=== PATIENT | female | born 1975 | race African-American/Black ===

== ENCOUNTER 2016-10-08 21:31 | Emergency (ER) | payer MEDICAID ==
[~2016-10-08] VITALS: Ht 180.3 cm; Wt 77.3 kg
[~2016-10-08 21:31] MED LIST: ELA10 PO; ESK300 PO; OLAN2.5T1 PO
[2016-10-08 21:52] VITALS: BP 120/85
--- NOTE | 2016-10-09 01:05 | NUR ---
TO ER BED 8
[2016-10-09] MEDS ORDERED: HYDROcodone/APAP 5/325 MG 1 TAB TAB PO ONE (01:10)
[2016-10-09] MEDS ORDERED: LIDOCAINE/EPI 1% 1:100000 20 ML VIAL INJ ONE (01:10)
--- NOTE | 2016-10-09 01:27 | NUR ---
PATIENT PRESENTS TO ED WITH C/O ABCESS ON TOP OF HEAD X 2 WEEKS NOW DRAINING . PT DENIES N/V/D; SKIN IS PINK/WARM/DRY; AAOX4 WITH EVEN AND STEADY GAIT; LUNGS CLEAR BL; HR EVEN AND REGULAR; PT DENIES ANY FEVER, CP, SOB, OR COUGH AT THIS TIME; PATIENT STATES PAIN OF 10/10 AT THIS TIME; VSS; PATIENT POSITIONED FOR COMFORT; HOB ELEVATED; BEDRAILS UP X2; BED DOWN. ER MD MADE AWARE OF PT STATUS.
--- NOTE | 2016-10-09 01:29 | NUR ---
DR SHARMA AT BEDSIDE DOING PROCEDURE. PT TOLERATING WELL.
[2016-10-09 02:06] VITALS: BP 120/81
--- NOTE | 2016-10-09 02:06 | NUR ---
Patient discharged with v/s stable. Written and verbal after care instructions given and explained. Patient alert, oriented and verbalized understanding of instructions. Ambulatory with steady gait. All questions addressed prior to discharge. ID band removed. Patient advised to follow up with PMD. Rx of KEFLEX, BACTRIM, NAPROSYN AND NORCO given. Patient educated on indication of medication including possible reaction and side effects. Opportunity to ask questions provided and answered.
== END 2016-10-09 02:06 | disposition home or self-care (01) ==
LOC: MED 21:31
DX: L02.811 Cutaneous abscess of head [any part, except face] (principal); J45.909 Unspecified asthma, uncomplicated
CPT/HCPCS: 10060; 99283; J2001

== ENCOUNTER 2020-12-24 14:47 | Emergency (ER) | payer MEDICAID ==
[~2020-12-24] VITALS: Ht 180.3 cm; Wt 70.3 kg
[~2020-12-24 14:47] MED LIST changes: -ELA10 PO; -ESK300 PO; -OLAN2.5T1 PO; +QUET300T1 PO
[2020-12-24 15:06] VITALS: BP 154/93
--- NOTE | 2020-12-24 15:12 | NUR ---
TENT 2
--- NOTE | 2020-12-24 16:47 | NUR ---
VIOLA SWAB DONE. HANDED TO LAB.
[2020-12-24] MEDS ORDERED: cefTRIAXone 500 MG in LIDOCAINE MPF 1% 1 ML IM ONE (16:50)
[2020-12-24] MEDS ORDERED: PHEN177S23 PO (16:52)
[2020-12-24] MEDS ORDERED: DOXY100C9 PO (16:52)
[2020-12-24] MEDS ORDERED: cefTRIAXone 500 MG VIAL ONE ×2 (16:53→16:55)
[2020-12-24] MEDS ORDERED: LIDOCAINE MPF 1% 5 ML ONE (16:55)
--- NOTE | 2020-12-24 17:04 | NUR ---
Patient discharged with v/s stable. Written and verbal after care instructions given and explained. Patient alert, oriented and verbalized understanding of instructions. Ambulatory with steady gait. All questions addressed prior to discharge. ID band removed. Patient advised to follow up with PMD. Rx of DOXYCYCLINE, PHENOL given. Patient educated on indication of medication including possible reaction and side effects. Opportunity to ask questions provided and answered.
[2020-12-24 17:05] VITALS: BP 154/93
== END 2020-12-24 17:04 | disposition home or self-care (01) ==
LOC: MED 14:47
DX: J02.9 Acute pharyngitis, unspecified (principal); Z20.822 Contact with and (suspected) exposure to COVID-19; Z20.2 Contact with and (suspected) exposure to infections with a predominantly sexual mode of transmission; Z88.8 Allergy status to other drugs, medicaments and biological substances; Z79.899 Other long term (current) drug therapy
CPT/HCPCS: 87426; 96372; 99283; J0696; J2001

== ENCOUNTER 2021-06-02 23:56 | Emergency (ER) | payer MEDICAID ==
[~2021-06-02] VITALS: Ht 180.3 cm; Wt 69.9 kg
[~2021-06-02 23:56] MED LIST changes: +DOXY-690 PO; +PHEN177S23 PO
[2021-06-03 00:29] VITALS: BP 166/103
--- NOTE | 2021-06-03 00:37 | NUR ---
PATIENT TO LOBBY
--- NOTE | 2021-06-03 01:00 | NUR ---
SEEN BY GISELA NO NURSING INTERVENTIONS NEEDED TO BE DONE FOR PATIENT
[2021-06-03] MEDS ORDERED: NAPR-54 PO (02:20)
[2021-06-03] MEDS ORDERED: LISI20TA29 PO (02:20)
[2021-06-03 02:21] VITALS: BP 166/103
--- NOTE | 2021-06-03 02:21 | NUR ---
Patient discharged with v/s stable. Written and verbal after care instructions given and explained BY DR. MENESES Patient alert, oriented and verbalized understanding of instructions. Ambulatory with steady gait. All questions addressed prior to discharge. ID band removed. Patient advised to follow up with PMD. Rx of given. Patient educated on indication of medication including possible reaction and side effects. Opportunity to ask questions provided and answered.
== END 2021-06-03 02:21 | disposition home or self-care (01) ==
LOC: MED 23:56
DX: M06.9 Rheumatoid arthritis, unspecified (principal); M25.512 Pain in left shoulder; M25.552 Pain in left hip; I10 Essential (primary) hypertension; Z88.1 Allergy status to other antibiotic agents
CPT/HCPCS: 73030; 73502; 99284

== ENCOUNTER 2021-06-26 22:25 | Emergency (ER) | payer MEDICAID ==
[~2021-06-26] VITALS: Ht 180.3 cm; Wt 72.6 kg
[~2021-06-26 22:25] MED LIST changes: +LISI20TA29 PO; +NAPR-54 PO
[2021-06-26 22:29] VITALS: BP 162/95
--- NOTE | 2021-06-26 22:37 | NUR ---
pt taken to bed 05.
--- NOTE | 2021-06-26 22:40 | NUR ---
Patient BIB by family from home. C/O nausea,vomiting and diarrhea x 2 days. Patient reported, had bodyache, nausea, vomiting and dirrhea for 2 days.
--- NOTE | 2021-06-26 23:00 | NUR ---
Dr. Padgett at bedside to exam patient.
[2021-06-26] MEDS ORDERED: NACL 0.9% 1,000 ML IV SCH (23:05)
[2021-06-26] MEDS ORDERED: ONDANSETRON 4 MG/2 ML VIAL IVP ONE (23:05)
[2021-06-26] MEDS ORDERED: KETOROLAC 15 MG/ML VIAL IVP ONE (23:05)
[2021-06-26 23:15] LABS: APPEARANCE,URINE CLOUDY (CLEAR); BILIRUBIN,URINE 2+ (NEGATIVE); BLOOD, URINE 3+ (NEGATIVE); COLOR,URINE YELLOW (YELLOW); LEUKOCYTE ESTERASE ,URINE 1+ (NEGATIVE); NITRITE, URINE NEGATIVE (NEGATIVE); PH,URINE 6.5 (5.0-9.0); UGLUCOSE NEGATIVE (NEGATIVE)
[2021-06-26 23:15] LABS: BASOPHILS % (AUTO) 0.6 % (0.0-2.0); EOSINOPHILS # (AUTO) 0.1 K/uL (0-0.4); EOSINOPHILS % (AUTO) 3.2 % (0.0-4.0); HEMOGLOBIN 13.6 g/dL (12.0-16.0); LYMPHOCYTES # (AUTO) 1.2 K/uL (2.5-16.5); LYMPHOCYTES % (AUTO) 27.5 % (20.5-51.1); MEAN CORPUSCULAR HEMOGLOBIN 33 pg (27-31); MEAN CORPUSCULAR HGB CONC 34 g/dL (33-37); MEAN CORPUSCULAR VOLUME 97.1 fL (80-94); MONOCYTES # (AUTO) 0.4 K/uL (0.8-1.0); NEUTROPHILS # (AUTO) 2.5 K/uL (1.8-7.7); NEUTROPHILS % (AUTO) 59.7 % (42.2-75.2); PLATELET COUNT (AUTO) 199 K/uL (140-450); RED BLOOD CELL COUNT(AUTO) 4.12 MIL/uL (4.20-5.40); RED CELL DISTRIBUTION WIDTH 12.5 % (11.6-13.7); WHITE BLOOD COUNT (AUTO) 4.2 K/uL (4.8-10.8)
[2021-06-26 23:36] LABS: RBC,URINE 11-20 (MOD) /HPF (0-5)
[2021-06-26 23:47] LABS: ALBUMIN 3.6 g/dL (3.4-5.0); ANION GAP 14.7 (8-16); CARBON DIOXIDE 25.2 mmol/L (21-32); CREATININE 0.8 mg/dL (0.6-1.3); TOTAL BILIRUBIN 0.5 mg/dL (0.0-1.0)
[2021-06-27 00:02] LABS: POTASSIUM 2.9 mmol/L (3.5-5.1)
[2021-06-27] MEDS ORDERED: POTASSIUM CHL 20 MEQ/NACL 0.9% 1,000 ML IV ONE (00:05)
--- NOTE | 2021-06-27 00:40 | NUR ---
provided pt with apple sauce and duane larsen
[2021-06-27] MEDS ORDERED: cefTRIAXone 1,000 MG VIAL ONE (00:49)
--- NOTE | 2021-06-27 01:54 | NUR ---
Provided [facility] as request.
[2021-06-27] MEDS ORDERED: POTASSIUM CHLORIDE 10 MEQ TABER PO ONE (02:00)
[2021-06-27] MEDS ORDERED: ACETAMINOPHEN EXTRA STRENGTH 500 MG TAB PO ONE (02:05)
--- NOTE | 2021-06-27 02:10 | NUR ---
Patient refused Tylenol medication, Dr. Padgett notified.
[2021-06-27] MEDS ORDERED: diphenhydrAMINE 50 MG/ML VIAL IVP ONE (02:15)
[2021-06-27] MEDS ORDERED: METOCLOPRAMIDE 10 MG/2 ML INJ VIAL IVP ONE (02:15)
--- NOTE | 2021-06-27 03:05 | NUR ---
Patient appears to be resting comfortably in bed. Vital Signs within normal limits. Respirations even and unlabored.
[2021-06-27] MEDS ORDERED: DIPH25TA53 PO (03:34)
[2021-06-27] MEDS ORDERED: PROC-62 PO (03:34)
[2021-06-27] MEDS ORDERED: SULF-59 PO (03:34)
--- NOTE | 2021-06-27 03:49 | NUR ---
Patient called her family for a ride.
[2021-06-27 03:51] VITALS: BP 142/88
--- NOTE | 2021-06-27 03:51 | NUR ---
Patient discharged with v/s stable. Written and verbal after care instructions given and explained. Patient alert, oriented and verbalized understanding of instructions. Ambulatory with steady gait. All questions addressed prior to discharge. ID band removed. Patient advised to follow up with PMD. Rx of Benadryl, Compazine and Bactrim given. Patient educated on indication of medication including possible reaction and side effects. Opportunity to ask questions provided and answered.
== END 2021-06-27 03:51 | disposition home or self-care (01) ==
LOC: MED 22:25
DX: K52.9 Noninfective gastroenteritis and colitis, unspecified (principal); Z20.822 Contact with and (suspected) exposure to COVID-19; N39.0 Urinary tract infection, site not specified; E87.6 Hypokalemia; Z88.1 Allergy status to other antibiotic agents; Z79.899 Other long term (current) drug therapy
CPT/HCPCS: 36415; 80053; 81001; 81025; 83690; 85025; 87086; 87426; 96361; 96365; 96366; 96368; 96375; 99285; J0696; J1200; J1885; J2405; J2765; J7030

== ENCOUNTER 2021-10-19 15:16 | Emergency (ER) | payer MEDICAID ==
[~2021-10-19] VITALS: Ht 180.3 cm; Wt 72.1 kg
[~2021-10-19 15:16] MED LIST changes: +DIPH25TA53 PO; +PROC-62 PO; +SULF-59 PO
[2021-10-19 15:22] VITALS: BP 136/90
[2021-10-19] MEDS ORDERED: IBUPROFEN 600 MG TAB PO ONE (15:35)
[2021-10-19] MEDS ORDERED: NACL 0.9% 1,000 ML IV ONE ×2 (16:20)
[2021-10-19] MEDS ORDERED: CEPH500C16 PO (17:02)
[2021-10-19] MEDS ORDERED: SULF-58 PO (17:02)
[2021-10-19] MEDS ORDERED: BACTO TP (17:02)
[2021-10-19] MEDS ORDERED: ACET-8386 PO (17:02)
[2021-10-19] MEDS ORDERED: IBUP-2213 PO (17:03)
[2021-10-19 17:46] VITALS: BP 136/90
== END 2021-10-19 17:46 | disposition home or self-care (01) ==
LOC: MED 15:16
DX: S93.602A Unspecified sprain of left foot, initial encounter (principal); L03.019 Cellulitis of unspecified finger; L03.119 Cellulitis of unspecified part of limb; L03.032 Cellulitis of left toe; R03.0 Elevated blood-pressure reading, without diagnosis of hypertension; Z79.1 Long term (current) use of non-steroidal anti-inflammatories (NSAID); Z79.891 Long term (current) use of opiate analgesic; Z79.2 Long term (current) use of antibiotics; Z79.899 Other long term (current) drug therapy; Z88.1 Allergy status to other antibiotic agents; X58.XXXA Exposure to other specified factors, initial encounter; Y92.89 Other specified places as the place of occurrence of the external cause; Y93.89 Activity, other specified; Y99.8 Other external cause status
CPT/HCPCS: 73630; 99283

== ENCOUNTER 2022-02-03 17:00 | Emergency (ER) | payer MEDICAID ==
[~2022-02-03] VITALS: Ht 170.2 cm; Wt 68.0 kg
[~2022-02-03 17:00] MED LIST changes: +ACET-8386 PO; +BACTO TP; +CEPH500C16 PO; +IBUP-2213 PO; +SULF-58 PO
[2022-02-03 17:49] VITALS: BP 138/100
--- NOTE | 2022-02-03 17:49 | NUR ---
46 y/o Female KENNEY DEVI as a pre-book as pt stated she was having high B/P. Pmhx: HTN Allergies: clindamycin
[2022-02-03 18:20] VITALS: BP 131/98
--- NOTE | 2022-02-03 18:20 | NUR ---
PATIENT BIB [employer]. PATIENT EXAMINED BY . PATIENT MEDICALLY CLEARED AND RELEASED IN CUSTODY IN STABLE CONDITION. ORIGINAL PRE-BOOK FORM GIVEN TO OFFICER Franky.
== END 2022-02-03 18:20 ==
LOC: MED 17:00
DX: I10 Essential (primary) hypertension (principal); Z02.89 Encounter for other administrative examinations; Z79.899 Other long term (current) drug therapy; Z88.8 Allergy status to other drugs, medicaments and biological substances
CPT/HCPCS: 99283

== ENCOUNTER 2022-04-22 17:05 | Emergency (ER) | payer MEDICAID ==
[~2022-04-22] VITALS: Ht 180.3 cm; Wt 72.1 kg
[~2022-04-22 17:05] MED LIST changes: -ACET-8386 PO; +ACET-8905 PO; -PROC-62 PO; +PROC-87 PO
[2022-04-22 17:18] VITALS: BP 155/103
--- NOTE | 2022-04-22 17:30 | NUR ---
46 y/o female, c/o facial swelling, shoulder pain, body aches, fatigue for 2 months. 10 pain aching pain. pmh: denies allergy: clindamycin
[2022-04-22] MEDS ORDERED: IBUPROFEN 800 MG TAB PO ONE (18:10)
[2022-04-22] MEDS ORDERED: AMOXICILLIN 500 MG CAP PO ONE (18:10)
[2022-04-22] MEDS ORDERED: AMOX500C25 PO (18:11)
[2022-04-22 18:25] VITALS: BP 132/89
--- NOTE | 2022-04-22 18:25 | NUR ---
Patient discharged with v/s stable. Written and verbal after care instructions given and explained. Patient verbalized understanding. Ambulatory with steady gait. All questions addressed prior to discharge. Advised to follow up with PMD.
== END 2022-04-22 18:25 | disposition home or self-care (01) ==
LOC: MED 17:05
DX: K04.7 Periapical abscess without sinus (principal); Z79.899 Other long term (current) drug therapy; Z88.8 Allergy status to other drugs, medicaments and biological substances
CPT/HCPCS: 99283